=== PATIENT | male | born 1965 | race African-American/Black ===

== ENCOUNTER 2018-02-15 02:41 | Emergency (ER) | payer SELFPAY ==
[~2018-02-15] VITALS: Ht 170.2 cm; Wt 73.0 kg
[2018-02-15] MEDS ORDERED: TAMSULOSIN HCL 0.4MG SR CAPSULE PO ONE (03:45)
[2018-02-15 05:33] VITALS: BP 100/60
== END 2018-02-15 06:05 | disposition left against medical advice (07) ==
LOC: ER 05:59
DX: R30.0 Dysuria (principal); R33.9 Retention of urine, unspecified; N40.0 Benign prostatic hyperplasia without lower urinary tract symptoms
CPT/HCPCS: 99283

== ENCOUNTER 2019-01-17 03:31 | Emergency (ER) | payer SELFPAY ==
[~2019-01-17] VITALS: Ht 170.2 cm; Wt 73.0 kg
[2019-01-17 05:54] VITALS: BP 129/78
== END 2019-01-17 07:08 | disposition left against medical advice (07) ==
LOC: ER 03:31
DX: R30.0 Dysuria (principal); Z53.21 Procedure and treatment not carried out due to patient leaving prior to being seen by health care provider